=== PATIENT | female | born 1965 | race Caucasian/White ===

== ENCOUNTER 2024-01-27 17:57 | Emergency (ER) | payer MEDICARE, OTHER ==
[2024-01-27] MEDS ORDERED: Sodium Chloride 0.9% 10 ML Syringe FLUSH PRN (18:34)
[2024-01-27] MEDS: Acetaminophen/HYDROcodone 325-10 MG Tab PO ONE (22:37)
== END 2024-01-28 00:29 | disposition home or self-care (01) ==
LOC: DL.ED 17:57
DX: S83.91XA Sprain of unspecified site of right knee, initial encounter (principal); S93.401A Sprain of unspecified ligament of right ankle, initial encounter; W10.9XXA Fall (on) (from) unspecified stairs and steps, initial encounter; Y93.89 Activity, other specified
CPT/HCPCS: 29515; 70450; 72125; 73110; 73130; 73700; 93970; 99284; A9270